=== PATIENT | male | born 1960 | race Caucasian/White ===

== ENCOUNTER 2023-02-06 12:50 | Emergency (ER) | payer OTHER ==
[~2023-02-06] VITALS: Ht 188 cm; Wt 119.4 kg
[2023-02-06 12:51] VITALS: TEMP 97.4
[2023-02-06] MEDS ORDERED: LISI5TAB11 PO (12:57)
[2023-02-06] MEDS ORDERED: AMLO10TA PO (12:57)
[2023-02-06] MEDS ORDERED: TETANUS/DIPHTHERIA TOX ADSORB ADULT 0.5ML SYR/VIAL IM ONE (15:15)
[2023-02-06] MEDS ORDERED: DOXYCYCLINE HYCLATE 100MG TABLET PO ONE ×2 (15:20)
[2023-02-06] MEDS ORDERED: BOOSTRIX VACCINE (TETANUS/DIPHTH/ACEL. PERTUSSIS) 0.5ML SYR IM.IMMUN ONE (15:20)
[2023-02-06] MEDS ORDERED: DOXY-443 PO (15:22)
[2023-02-06 15:39] VITALS: BP 145/76; O2SAT 99
== END 2023-02-06 15:41 | disposition home or self-care (01) ==
LOC: M ED 12:50
DX: S61.011A Laceration without foreign body of right thumb without damage to nail, initial encounter (principal); W27.4XXA Contact with kitchen utensil, initial encounter; Y92.009 Unspecified place in unspecified non-institutional (private) residence as the place of occurrence of the external cause; Y93.G1 Activity, food preparation and clean up; Y99.8 Other external cause status; I10 Essential (primary) hypertension